=== PATIENT | female | born 1950 | race Caucasian/White ===

== ENCOUNTER 2021-03-11 17:25 | Emergency (ER) | payer OTHER, MEDICARE ==
[2021-03-11] MEDS ORDERED: CASIRIVIMAB/IMDEVIMAB 10 ML in SODIUM CHLORIDE 100 ML IVPB ONE (17:40)
[2021-03-11 18:03] LABS: HEMATOCRIT 38.1 % (32.4-45.2); MCH 31.7 pg (25.7-33.7); MCHC 34.1 g/dl (32.0-36.0); MEAN PLT VOLUME 7.6 fl (7.5-11.1); PLATELET COUNT 254 10^3/uL (134-434); RBC 4.09 M/mm3 (3.60-5.2); WHITE BLOOD COUNT 4.2 K/mm3 (4.0-10.0)
[2021-03-11 18:32] LABS: BLOOD UREA NITROGEN 10.5 mg/dL (7-18); CALCIUM 8.9 mg/dL (8.5-10.1)
[2021-03-11 18:36] LABS: CREATININE 0.8 mg/dL (0.55-1.3)
[2021-03-11 18:54] VITALS: BP 130/77; PULSE 92; TEMP 92; BMI 25.4
== END 2021-03-11 20:14 | disposition home or self-care (01) ==
LOC: JCOVINFU 17:25
PROC: 3E033GC Introduction of Other Therapeutic Substance into Peripheral Vein, Percutaneous Approach (ICD-10-PCS; principal; 2021-03-11)
DX: U07.1 COVID-19 (principal)
CPT/HCPCS: 36415; 80048; 85027; 99284-25; Q0240